=== PATIENT | male | born 1965 | race Caucasian/White ===

== ENCOUNTER 2018-03-03 07:23 | Emergency (ER) | payer OTHER ==
[~2018-03-03] VITALS: Ht 175.3 cm; Wt 131.8 kg
[~2018-03-03 07:23] MED LIST: FURO20 PO; LEDI1TAB PO; LISI-661 PO; METF-960 PO; METH10SO PO; NADO20 PO; RANI150T7 PO; SPIR50 PO; SULF-168 PO
[2018-03-03 07:33] LABS: GLUCOSE,POINT OF CARE 162 MG/DL (70-110)
[2018-03-03] MEDS ORDERED: DIPHENOXYLATE/ATROP 2.5-0.025 MG/5 ML ORAL.SYG LIQUID PO ONE (08:00)
[2018-03-03] MEDS ORDERED: ONDANSETRON HCL 4 MG/2 ML VIAL IVP ONE (08:00)
[2018-03-03] MEDS ORDERED: SODIUM CHLORIDE 0.9% 1,000 ML IV ONE (08:00)
[2018-03-03 09:19] LABS: BASOPHILS % (AUTO) 0.3 % (0.0-2.0); EOSINOPHILS % (AUTO) 3.2 % (1.0-6.0); HEMATOCRIT 37.9 % (41-53); HEMOGLOBIN 13.4 g/dL (13.5-17.5); LYMPHOCYTES # (AUTO) 0.6 K/uL (1.0-4.8); LYMPHOCYTES % (AUTO) 12.5 % (22.0-44.0); MEAN CORPUSCULAR HGB CONC 35.4 G/dL (31.0-37.0); MEAN CORPUSCULAR VOLUME 82 fL (80-100); MONOCYTES # (AUTO) 0.4 K/uL (0.1-1.0); MONOCYTES % (AUTO) 8.3 % (2.0-9.0); NEUTROPHILS # (AUTO) 3.7 K/uL (1.8-7.7); NEUTROPHILS % (AUTO) 75.7 % (40.0-70.0); PLATELET COUNT (AUTO) 50 K/uL (150-450); RED BLOOD CELL COUNT(AUTO) 4.64 MIL/uL (4.50-5.90); RED CELL DISTRIBUTION WIDTH 15.4 % (11.5-14.5)
[2018-03-03 09:33] LABS: ANION GAP 10 mmol/L (8-16); CALCIUM, TOTAL 8.3 mg/dL (8.8-10.5); CARBON DIOXIDE 27 mmol/L (22-29); CHLORIDE 101 mmol/L (98-107); CREATININE 0.86 mg/dL (0.60-1.30); GLOMERULAR FILTR. RATE CALC > 60 mL/min (>60); GLUCOSE,RANDOM 183 mg/dL (70-110); POTASSIUM 3.5 mmol/L (3.5-5.1); SODIUM SERUM 138 mmol/L (136-145); UREA NITROGEN, BLOOD 13 mg/dL (7-18)
[2018-03-03 09:38] LABS: ALANINE AMINOTRANSFERASE 36 U/L (12-78); ALKALINE PHOSPHATASE 197 U/L (46-116); ASPARTATE AMINOTRANSFERASE 33 U/L (15-37); BILIRUBIN,TOTAL 1.3 mg/dL (0.1-1.0); LIPASE 255 U/L (73-393); TOTAL PROTEIN, SERUM 7.5 g/dL (6.4-8.2)
[2018-03-03 11:10] LABS: APPEARANCE,URINE CLOUDY (CLEAR); GLUCOSE, URINE (UA) NEGATIVE (NEGATIVE); KETONES,URINE 15 mg/dL (NEGATIVE); LEUKOCYTE ESTERASE ,URINE NEGATIVE (NEGATIVE); NITRATE,URINE NEGATIVE (NEGATIVE); OCCULT BLOOD,URINE LARGE (NEGATIVE); PROTEIN,URINE NEGATIVE (NEGATIVE)
[2018-03-03 11:20] VITALS: BP 113/70
[2018-03-03 11:28] LABS: BILIRUBIN,URINE PRELIM. POSITIVE (NEGATIVE)
[2018-03-03] MEDS ORDERED: HEPARIN SODIUM,PORCINE 1,000 UNITS/ML VIAL ONE (11:41)
[2018-03-03 11:49] LABS: BACTERIA,URINE None Seen /HPF (None Seen); MUCUS,URINE Moderate LPF (None Seen); RBC,URINE 51-100 /HPF (0-2); SQUAMOUS EPITHELIAL CELL,UR Few /LPF (None Seen); WBC,URINE None Seen /HPF (0-5)
== END 2018-03-03 11:58 | disposition home or self-care (01) ==
LOC: EMS 07:24
DX: R19.7 Diarrhea, unspecified (principal); E11.9 Type 2 diabetes mellitus without complications; R11.0 Nausea; R10.31 Right lower quadrant pain; I11.0 Hypertensive heart disease with heart failure; I50.9 Heart failure, unspecified; G89.29 Other chronic pain; Z79.899 Other long term (current) drug therapy; Z79.84 Long term (current) use of oral hypoglycemic drugs
CPT/HCPCS: 36415; 80053; 81001; 82962; 83690; 84484; 85025; 93005; 96361; 96374; 99285; J1644; J2405; J7030

== ENCOUNTER 2019-01-17 14:22 | Emergency (ER) | payer OTHER ==
[~2019-01-17] VITALS: Ht 175.3 cm; Wt 131.8 kg
[2019-01-17 14:41] LABS: GLUCOSE,POINT OF CARE 390 MG/DL (70-110)
[2019-01-17] MEDS ORDERED: KETOROLAC TROMETHAMINE 30 MG/ML VIAL IVP ONE (15:15)
[2019-01-17 16:09] LABS: BASOPHILS % (AUTO) 0.5 % (0.0-2.0); HEMATOCRIT 38.6 % (41-53); HEMOGLOBIN 13.6 g/dL (13.5-17.5); LYMPHOCYTES # (AUTO) 0.7 K/uL (1.0-4.8); LYMPHOCYTES % (AUTO) 7.4 % (22.0-44.0); MEAN CORPUSCULAR HEMOGLOBIN 27.9 pg (26.0-34.0); MEAN CORPUSCULAR HGB CONC 35.2 G/dL (31.0-37.0); MEAN CORPUSCULAR VOLUME 79 fL (80-100); MONOCYTES # (AUTO) 0.7 K/uL (0.1-1.0); MONOCYTES % (AUTO) 7.5 % (2.0-9.0); NEUTROPHILS # (AUTO) 8.1 K/uL (1.8-7.7); NEUTROPHILS % (AUTO) 83.6 % (40.0-70.0); RED BLOOD CELL COUNT(AUTO) 4.88 MIL/uL (4.50-5.90); RED CELL DISTRIBUTION WIDTH 15.8 % (11.5-14.5)
[2019-01-17 16:27] LABS: PLATELET COUNT (AUTO) 68 K/uL (150-450)
[2019-01-17 16:36] LABS: ALANINE AMINOTRANSFERASE 18 U/L (12-78); ALBUMIN 2.7 g/dL (3.4-5.0); ALKALINE PHOSPHATASE 151 U/L (46-116); ANION GAP 6 mmol/L (8-16); ASPARTATE AMINOTRANSFERASE 27 U/L (15-37); BILIRUBIN,TOTAL 2.6 mg/dL (0.1-1.0); CALCIUM, TOTAL 8.2 mg/dL (8.8-10.5); CARBON DIOXIDE 27 mmol/L (22-29); CHLORIDE 93 mmol/L (98-107); CREATININE 1.25 mg/dL (0.60-1.30); GLOMERULAR FILTR. RATE CALC 60 mL/min (>60); LACTIC ACID 2.8 mmol/L (0.4-2.0); POTASSIUM 4.4 mmol/L (3.5-5.1); SODIUM SERUM 126 mmol/L (136-145); TOTAL PROTEIN, SERUM 7.8 g/dL (6.4-8.2)
[2019-01-17 16:39] LABS: GLUCOSE,RANDOM 425 mg/dL (70-110)
[2019-01-17 16:59] LABS: UREA NITROGEN, BLOOD 20 mg/dL (7-18)
[2019-01-17] MEDS ORDERED: CefTRIAXone 1 GM/DEXTROSE 50 ML IV ONE (17:00)
[2019-01-17] MEDS ORDERED: ACYCLOVIR 200 MG CAPSULE PO ONE (17:00)
[2019-01-17] MEDS ORDERED: SODIUM CHLORIDE 0.9% 1,000 ML IV ONE (17:00)
[2019-01-17] MEDS ORDERED: INSULIN REGULAR, HUMAN 100 UNITS/ML IVP ONE (17:00)
[2019-01-17 19:35] LABS: GLUCOSE,POINT OF CARE 295 MG/DL (70-110)
[2019-01-17 20:30] VITALS: BP 117/68
== END 2019-01-17 20:53 | disposition home or self-care (01) ==
LOC: EMS 14:24
DX: B02.9 Zoster without complications (principal); E11.9 Type 2 diabetes mellitus without complications; I11.0 Hypertensive heart disease with heart failure; I50.9 Heart failure, unspecified; G89.29 Other chronic pain; Z79.899 Other long term (current) drug therapy; Z79.84 Long term (current) use of oral hypoglycemic drugs
CPT/HCPCS: 36415; 80053; 82962; 83605; 85025; 87040; 96365; 96366; 96375; 99283; J0696; J1815; J1885; J7030

== ENCOUNTER 2019-01-27 14:15 | Inpatient (IN) | payer OTHER ==
[~2019-01-27] VITALS: Ht 175.3 cm; Wt 124.0 kg
[~2019-01-27 14:15] MED LIST changes: -FURO20 PO; -LEDI1TAB PO; -NADO20 PO; -RANI150T7 PO; -SPIR50 PO; -SULF-168 PO
[2019-01-27 14:46] LABS: GLUCOSE,POINT OF CARE 250 MG/DL (70-110)
[2019-01-27] MEDS ORDERED: LIDOCAINE 1% 10 ML VIAL INJ ONE (15:30)
[2019-01-27 16:25] LABS: BASOPHILS % (AUTO) 0.6 % (0.0-2.0); EOSINOPHILS % (AUTO) 4.5 % (1.0-6.0); HEMOGLOBIN 14.4 g/dL (13.5-17.5); LYMPHOCYTES # (AUTO) 1.7 K/uL (1.0-4.8); LYMPHOCYTES % (AUTO) 13.9 % (22.0-44.0); MEAN CORPUSCULAR HGB CONC 34.4 G/dL (31.0-37.0); MEAN CORPUSCULAR VOLUME 81 fL (80-100); MONOCYTES # (AUTO) 0.9 K/uL (0.1-1.0); MONOCYTES % (AUTO) 7.5 % (2.0-9.0); NEUTROPHILS # (AUTO) 8.9 K/uL (1.8-7.7); NEUTROPHILS % (AUTO) 73.5 % (40.0-70.0); RED BLOOD CELL COUNT(AUTO) 5.15 MIL/uL (4.50-5.90); RED CELL DISTRIBUTION WIDTH 15.9 % (11.5-14.5)
[2019-01-27 16:34] LABS: ANION GAP 10 mmol/L (8-16); CALCIUM, TOTAL 9.4 mg/dL (8.8-10.5); CARBON DIOXIDE 22 mmol/L (22-29); CHLORIDE 95 mmol/L (98-107); CREATININE 1.22 mg/dL (0.60-1.30); GLOMERULAR FILTR. RATE CALC > 60 mL/min (>60); GLUCOSE,RANDOM 215 mg/dL (70-110); POTASSIUM 5.4 mmol/L (3.5-5.1); SODIUM SERUM 127 mmol/L (136-145); UREA NITROGEN, BLOOD 11 mg/dL (7-18)
[2019-01-27 16:39] LABS: ALANINE AMINOTRANSFERASE 26 U/L (12-78); ALBUMIN 3.1 g/dL (3.4-5.0); ALKALINE PHOSPHATASE 175 U/L (46-116); ASPARTATE AMINOTRANSFERASE 34 U/L (15-37); BILIRUBIN,TOTAL 1.7 mg/dL (0.1-1.0); TOTAL PROTEIN, SERUM 8.8 g/dL (6.4-8.2)
[2019-01-27 16:56] LABS: PLATELET COUNT (AUTO) 83 K/uL (150-450)
[2019-01-27] MEDS ORDERED: POVIDONE-IODINE 10% 120 ML SOLUTION TP ONE (17:45)
[2019-01-27] MEDS ORDERED: VANCOMYCIN HCL 1 GM/D5% WATER 200 ML IV ONE (18:00)
[2019-01-27] MEDS ORDERED: PIPERACILLIN/TAZO 3.375 GM/D5W 50 ML IV ONE (18:00)
[2019-01-27] MEDS ORDERED: DOCUSATE SODIUM 100 MG CAPSULE PO PRN (18:15)
[2019-01-27] MEDS ORDERED: OxyCODONE HCL/ACETAMINOPHEN 5-325 MG TABLET PO PRN (18:15)
[2019-01-27] MEDS ORDERED: MORPHINE SULFATE 2 MG/ML SYRINGE IVP PRN (18:15)
[2019-01-27] MEDS ORDERED: MAGNESIUM HYDROXIDE SUSPENSION 30 ML UDCUP PO PRN (18:15)
[2019-01-27] MEDS ORDERED: ONDANSETRON HCL 4 MG/2 ML VIAL IVP PRN (18:15)
[2019-01-27] MEDS ORDERED: ACETAMINOPHEN 325 MG TABLET PO PRN (18:15)
[2019-01-27] MEDS ORDERED: DEXTROSE 50%-WATER 25 GM/50 ML SYRINGE IVP PRN (18:30)
[2019-01-27] MEDS ORDERED: SODIUM CHLORIDE 0.9% 1,000 ML IV ONE (18:30)
[2019-01-27 20:54] VITALS: BP 112/70
[2019-01-27] MEDS: INSULIN LISPRO 100 UNITS/ML SQ PRN (21:14)
[2019-01-27 21:35] LABS: GLUCOMETER DEV NAME(LOC) 6N.1; GLUCOSE,POINT OF CARE 170 MG/DL (70-110)
[2019-01-27] MEDS: PIPERACILLIN/TAZO 3.375 GM/D5W 50 ML IV SCH (23:30)
[2019-01-27] MEDS ORDERED: INFLUENZA VIRUS VACCINE QVS 2019-20 (3YR+)/PF 60 MCG/0.5 ML SYRINGE IM ONE (23:30)
[2019-01-28] MEDS ORDERED: TAZOBACTAM IV SCH
[2019-01-28] MEDS ORDERED: DEX IS IV SCH
[2019-01-28] MEDS ORDERED: PIPERACILLIN IV SCH
[2019-01-28 00:11] VITALS: BP 114/72
[2019-01-28 04:00] VITALS: BP 91/60
[2019-01-28] MEDS: PIPERACILLIN/TAZO 3.375 GM/D5W 50 ML IV SCH (05:28)
[2019-01-28] MEDS: INSULIN LISPRO 100 UNITS/ML SQ PRN ×2 (05:33→11:58)
[2019-01-28 06:11] LABS: GLUCOMETER DEV NAME(LOC) 6N.1; GLUCOSE,POINT OF CARE 156 MG/DL (70-110)
[2019-01-28 06:54] LABS: BASOPHILS % (AUTO) 0.4 % (0.0-2.0); EOSINOPHILS % (AUTO) 4.1 % (1.0-6.0); HEMATOCRIT 35.3 % (41-53); HEMOGLOBIN 12.2 g/dL (13.5-17.5); LYMPHOCYTES # (AUTO) 1.6 K/uL (1.0-4.8); LYMPHOCYTES % (AUTO) 23.7 % (22.0-44.0); MEAN CORPUSCULAR HGB CONC 34.5 G/dL (31.0-37.0); MEAN CORPUSCULAR VOLUME 81 fL (80-100); MONOCYTES # (AUTO) 0.7 K/uL (0.1-1.0); MONOCYTES % (AUTO) 10.5 % (2.0-9.0); NEUTROPHILS # (AUTO) 4.2 K/uL (1.8-7.7); NEUTROPHILS % (AUTO) 61.3 % (40.0-70.0); PLATELET COUNT (AUTO) 83 K/uL (150-450); RED BLOOD CELL COUNT(AUTO) 4.34 MIL/uL (4.50-5.90)
[2019-01-28] MEDS ORDERED: VANCOMYCIN HCL 1.75 GM in DEXTROSE 5%-WATER 250 ML IV SCH (07:00)
[2019-01-28 07:14] LABS: CALCIUM, TOTAL 9.1 mg/dL (8.8-10.5); CREATININE 1.46 mg/dL (0.60-1.30); POTASSIUM 5.2 mmol/L (3.5-5.1)
[2019-01-28 07:55] VITALS: BP 109/64
[2019-01-28] MEDS ORDERED: FAMOTIDINE 20 MG TABLET PO SCH (09:00)
[2019-01-28] MEDS ORDERED: SODIUM CHLORIDE 0.9% 1,000 ML IV ONE (10:00)
[2019-01-28 11:12] VITALS: BP 120/75
[2019-01-28 19:06] LABS: GLUCOMETER DEV NAME(LOC) 6N.1; GLUCOSE,POINT OF CARE 291 MG/DL (70-110)
== END 2019-01-28 12:35 | disposition left against medical advice (07) | DRG 603 ==
LOC: EMS 14:18 → 6N 18:25
PROVIDERS: ADMIT Internal Medicine; ATTEND Internal Medicine
PROC: 0X920ZZ Drainage of Right Shoulder Region, Open Approach (ICD-10-PCS; principal; 2019-01-27)
DX: L02.413 Cutaneous abscess of right upper limb (principal); E87.1 Hypo-osmolality and hyponatremia; E44.0 Moderate protein-calorie malnutrition; Z68.41 Body mass index [BMI] 40.0-44.9, adult; L03.113 Cellulitis of right upper limb; F19.10 Other psychoactive substance abuse, uncomplicated; B19.20 Unspecified viral hepatitis C without hepatic coma; D69.6 Thrombocytopenia, unspecified; E11.9 Type 2 diabetes mellitus without complications; E66.01 Morbid (severe) obesity due to excess calories; F11.10 Opioid abuse, uncomplicated; I11.0 Hypertensive heart disease with heart failure; I50.9 Heart failure, unspecified; B02.9 Zoster without complications; Z91.19 Patient's noncompliance with other medical treatment and regimen; Z79.899 Other long term (current) drug therapy; Z53.29 Procedure and treatment not carried out because of patient's decision for other reasons
CPT/HCPCS: 10060; 83605; 87040; 87070; 87081; 87205; 93306; J2270; J2543; J3370; J3490; J7060

== ENCOUNTER 2019-02-11 09:53 | Emergency (ER) | payer OTHER ==
[~2019-02-11] VITALS: Ht 177.8 cm; Wt 131.8 kg
[2019-02-11 10:31] LABS: GLUCOSE,POINT OF CARE 214 MG/DL (70-110)
[2019-02-11] MEDS ORDERED: AMOX TR/POT CLAV 875 MG/125 MG TABLET PO ONE (10:45)
[2019-02-11 11:27] LABS: BASOPHILS % (AUTO) 0.5 % (0.0-2.0); EOSINOPHILS % (AUTO) 3.7 % (1.0-6.0); HEMATOCRIT 33.7 % (41-53); HEMOGLOBIN 11.6 g/dL (13.5-17.5); LYMPHOCYTES # (AUTO) 0.7 K/uL (1.0-4.8); LYMPHOCYTES % (AUTO) 14.4 % (22.0-44.0); MEAN CORPUSCULAR HEMOGLOBIN 28.1 pg (26.0-34.0); MEAN CORPUSCULAR HGB CONC 34.4 G/dL (31.0-37.0); MEAN CORPUSCULAR VOLUME 82 fL (80-100); MONOCYTES # (AUTO) 0.5 K/uL (0.1-1.0); MONOCYTES % (AUTO) 10.6 % (2.0-9.0); NEUTROPHILS # (AUTO) 3.4 K/uL (1.8-7.7); NEUTROPHILS % (AUTO) 70.8 % (40.0-70.0); RED BLOOD CELL COUNT(AUTO) 4.12 MIL/uL (4.50-5.90); RED CELL DISTRIBUTION WIDTH 17.2 % (11.5-14.5)
[2019-02-11 11:37] LABS: CALCIUM, TOTAL 7.9 mg/dL (8.8-10.5); CREATININE 1.46 mg/dL (0.60-1.30); POTASSIUM 4.1 mmol/L (3.5-5.1)
[2019-02-11 12:17] LABS: PLATELET COUNT (AUTO) 43 K/uL (150-450)
[2019-02-11 12:32] VITALS: BP 113/76
[2019-02-11] MEDS ORDERED: HEPARIN SODIUM,PORCINE 100 UNITS/ML 5 ML VIAL IVP ONE ×2 (12:45→13:00)
== END 2019-02-11 13:02 | disposition home or self-care (01) ==
LOC: EMS 09:54
DX: L03.113 Cellulitis of right upper limb (principal); D69.6 Thrombocytopenia, unspecified; E11.65 Type 2 diabetes mellitus with hyperglycemia; I11.0 Hypertensive heart disease with heart failure; I50.9 Heart failure, unspecified; G89.29 Other chronic pain; F11.90 Opioid use, unspecified, uncomplicated; Z79.84 Long term (current) use of oral hypoglycemic drugs; Z79.899 Other long term (current) drug therapy
CPT/HCPCS: 36415; 73130; 80048; 82962; 85025; 96374; 99284; J1642

== ENCOUNTER 2019-03-09 15:01 | Inpatient (IN) | payer OTHER ==
[~2019-03-09] VITALS: Ht 175.3 cm; Wt 122.7 kg
[2019-03-09] MEDS ORDERED: SODIUM CHLORIDE 0.9% 1,000 ML IV ONE (15:12)
[2019-03-09] MEDS ORDERED: VANCOMYCIN HCL 1 GM/D5% WATER 200 ML IV ONE (15:15)
[2019-03-09] MEDS ORDERED: CefTRIAXone 1 GM/DEXTROSE 50 ML IV ONE (15:15)
[2019-03-09 16:25] LABS: BASOPHILS % (AUTO) 0.3 % (0.0-2.0); EOSINOPHILS % (AUTO) 1.8 % (1.0-6.0); HEMATOCRIT 34.2 % (41-53); HEMOGLOBIN 11.6 g/dL (13.5-17.5); LYMPHOCYTES # (AUTO) 0.7 K/uL (1.0-4.8); MEAN CORPUSCULAR HEMOGLOBIN 27.5 pg (26.0-34.0); MEAN CORPUSCULAR HGB CONC 33.9 G/dL (31.0-37.0); MEAN CORPUSCULAR VOLUME 81 fL (80-100); MONOCYTES # (AUTO) 0.7 K/uL (0.1-1.0); MONOCYTES % (AUTO) 8.5 % (2.0-9.0); NEUTROPHILS # (AUTO) 6.2 K/uL (1.8-7.7); NEUTROPHILS % (AUTO) 80.4 % (40.0-70.0); RED BLOOD CELL COUNT(AUTO) 4.21 MIL/uL (4.50-5.90); RED CELL DISTRIBUTION WIDTH 16.4 % (11.5-14.5)
[2019-03-09 16:27] LABS: CREATININE 1.33 mg/dL (0.60-1.30); POTASSIUM 4.2 mmol/L (3.5-5.1)
[2019-03-09 16:31] LABS: INR 1.2 (0.9-1.1); PROTHROMBIN TIME 12.2 SEC (9.4-11.6)
[2019-03-09 16:33] LABS: ALBUMIN 2.6 g/dL (3.4-5.0); BILIRUBIN,TOTAL 1.9 mg/dL (0.1-1.0); TOTAL PROTEIN, SERUM 7.6 g/dL (6.4-8.2)
[2019-03-09 16:55] LABS: PLATELET COUNT (AUTO) 52 K/uL (150-450); PLATELET MORPHOLOGY COMMENT DECREASED
[2019-03-09] MEDS ORDERED: ACETAMINOPHEN 325 MG TABLET PO PRN (18:45)
[2019-03-09] MEDS ORDERED: 0.9% SODIUM CHLORIDE 10 ML SYRINGE IVP PRN (18:45)
[2019-03-09] MEDS ORDERED: ONDANSETRON HCL 4 MG/2 ML VIAL IVP PRN (18:45)
[2019-03-09 19:50] VITALS: BP 135/77
[2019-03-10 00:46] VITALS: BP 130/79
[2019-03-10] MEDS ORDERED: GLUCAGON,HUMAN RECOMBINANT 1 MG VIAL IM PRN (03:00)
[2019-03-10] MEDS ORDERED: OxyCODONE HCL/ACETAMINOPHEN 5-325 MG TABLET PO PRN (03:00)
[2019-03-10] MEDS ORDERED: INSULIN LISPRO 100 UNITS/ML SQ PRN (03:00)
[2019-03-10] MEDS ORDERED: 0.9% SODIUM CHLORIDE 10 ML SYRINGE IVP PRN (03:00)
[2019-03-10] MEDS ORDERED: CeFAZolin 1 GM/DEXTROSE 50 ML IV SCH (03:00)
[2019-03-10] MEDS ORDERED: DEXTROSE 50%-WATER 25 GM/50 ML SYG IVP PRN (03:15)
[2019-03-10] MEDS ORDERED: SODIUM CHLORIDE 0.9% 250 ML IV ONE (04:14)
[2019-03-10] MEDS: DOCUSATE SODIUM 100 MG CAPSULE PO SCH ×3 (04:38→21:13)
[2019-03-10] MEDS: CeFAZolin 1 GM/DEXTROSE 50 ML IV SCH ×3 (04:40→21:11)
[2019-03-10 05:19] VITALS: BP 133/76
[2019-03-10 06:02] LABS: GLUCOMETER DEV NAME(LOC) 4E.2; GLUCOSE,POINT OF CARE 125 MG/DL (70-110)
[2019-03-10 06:02] LABS: GLUCOMETER DEV NAME(LOC) 4E.2; GLUCOSE,POINT OF CARE 198 MG/DL (70-110)
[2019-03-10 06:59] LABS: BASOPHILS % (AUTO) 0.2 % (0.0-2.0); EOSINOPHILS % (AUTO) 3.9 % (1.0-6.0); HEMATOCRIT 30.8 % (41-53); HEMOGLOBIN 10.8 g/dL (13.5-17.5); LYMPHOCYTES # (AUTO) 0.8 K/uL (1.0-4.8); LYMPHOCYTES % (AUTO) 13.7 % (22.0-44.0); MEAN CORPUSCULAR HEMOGLOBIN 28.1 pg (26.0-34.0); MEAN CORPUSCULAR VOLUME 80 fL (80-100); MONOCYTES # (AUTO) 0.6 K/uL (0.1-1.0); MONOCYTES % (AUTO) 10.1 % (2.0-9.0); NEUTROPHILS # (AUTO) 4.1 K/uL (1.8-7.7); NEUTROPHILS % (AUTO) 72.1 % (40.0-70.0); PLATELET COUNT (AUTO) 49 K/uL (150-450); RED BLOOD CELL COUNT(AUTO) 3.84 MIL/uL (4.50-5.90); RED CELL DISTRIBUTION WIDTH 16.2 % (11.5-14.5)
[2019-03-10 07:12] LABS: ALANINE AMINOTRANSFERASE 20 U/L (12-78); ALBUMIN 2.4 g/dL (3.4-5.0); ALKALINE PHOSPHATASE 122 U/L (46-116); ANION GAP 7 mmol/L (8-16); ASPARTATE AMINOTRANSFERASE 28 U/L (15-37); BILIRUBIN,TOTAL 1.1 mg/dL (0.1-1.0); CALCIUM, TOTAL 7.9 mg/dL (8.8-10.5); CARBON DIOXIDE 26 mmol/L (22-29); CHLORIDE 103 mmol/L (98-107); CREATININE 1.11 mg/dL (0.60-1.30); GLOMERULAR FILTR. RATE CALC > 60 mL/min (>60); GLUCOSE,RANDOM 122 mg/dL (70-110); POTASSIUM 3.8 mmol/L (3.5-5.1); SODIUM SERUM 136 mmol/L (136-145); TOTAL PROTEIN, SERUM 7.1 g/dL (6.4-8.2); UREA NITROGEN, BLOOD 16 mg/dL (7-18)
[2019-03-10 07:21] VITALS: BP 116/69
[2019-03-10] MEDS: FAMOTIDINE 20 MG TABLET PO SCH (08:18)
[2019-03-10] MEDS: LISINOPRIL 10 MG TABLET PO SCH (09:16)
[2019-03-10] MEDS: ONDANSETRON HCL 4 MG/2 ML VIAL IVP PRN (09:16)
[2019-03-10] MEDS: OxyCODONE HCL/ACETAMINOPHEN 5-325 MG TABLET PO PRN ×2 (09:17→17:54)
[2019-03-10 11:10] VITALS: BP 138/93
[2019-03-10] MEDS: INSULIN LISPRO 100 UNITS/ML SQ PRN ×3 (11:33→21:16)
[2019-03-10] MEDS: INSULIN LISPRO 100 UNITS/ML SQ SCH ×2 (11:35→17:57)
[2019-03-10] MEDS: METHADONE HCL 10 MG TABLET PO SCH (13:32)
[2019-03-10 13:35] LABS: GLUCOMETER DEV NAME(LOC) 4E.2; GLUCOSE,POINT OF CARE 202 MG/DL (70-110)
[2019-03-10 15:10] VITALS: BP 115/71
[2019-03-10 20:23] VITALS: BP 125/77
[2019-03-10 20:38] LABS: GLUCOMETER DEV NAME(LOC) 4E.2; GLUCOSE,POINT OF CARE 192 MG/DL (70-110)
[2019-03-10] MEDS: INSULIN GLARGINE,HUM.REC.ANLOG 100 UNITS/ML SQ SCH (21:13)
[2019-03-11] VITALS (7 sets, daily range): BP systolic 112–137; BP diastolic 69–92
[2019-03-11 00:33] LABS: GLUCOMETER DEV NAME(LOC) 6N.2; GLUCOSE,POINT OF CARE 168 MG/DL (70-110)
[2019-03-11] MEDS: CeFAZolin 1 GM/DEXTROSE 50 ML IV SCH ×2 (04:05→11:41)
[2019-03-11] MEDS: INSULIN LISPRO 100 UNITS/ML SQ SCH ×3 (05:14→17:29)
[2019-03-11 06:07] LABS: ANION GAP 5 mmol/L (8-16); CALCIUM, TOTAL 7.8 mg/dL (8.8-10.5); CARBON DIOXIDE 28 mmol/L (22-29); CHLORIDE 104 mmol/L (98-107); CREATININE 1.11 mg/dL (0.60-1.30); GLOMERULAR FILTR. RATE CALC > 60 mL/min (>60); GLUCOSE,RANDOM 118 mg/dL (70-110); POTASSIUM 3.9 mmol/L (3.5-5.1); SODIUM SERUM 137 mmol/L (136-145); UREA NITROGEN, BLOOD 15 mg/dL (7-18)
[2019-03-11 06:09] LABS: BASOPHILS % (AUTO) 0.3 % (0.0-2.0); EOSINOPHILS % (AUTO) 4.6 % (1.0-6.0); HEMATOCRIT 30.4 % (41-53); HEMOGLOBIN 10.6 g/dL (13.5-17.5); LYMPHOCYTES # (AUTO) 0.8 K/uL (1.0-4.8); LYMPHOCYTES % (AUTO) 19.5 % (22.0-44.0); MEAN CORPUSCULAR HGB CONC 34.9 G/dL (31.0-37.0); MEAN CORPUSCULAR VOLUME 80 fL (80-100); MONOCYTES # (AUTO) 0.4 K/uL (0.1-1.0); MONOCYTES % (AUTO) 10.5 % (2.0-9.0); NEUTROPHILS # (AUTO) 2.5 K/uL (1.8-7.7); NEUTROPHILS % (AUTO) 65.1 % (40.0-70.0); RED BLOOD CELL COUNT(AUTO) 3.79 MIL/uL (4.50-5.90); RED CELL DISTRIBUTION WIDTH 15.7 % (11.5-14.5)
[2019-03-11 08:01] LABS: PLATELET COUNT (AUTO) 52 K/uL (150-450)
[2019-03-11] MEDS: FAMOTIDINE 20 MG TABLET PO SCH (08:26)
[2019-03-11] MEDS: METHADONE HCL 10 MG TABLET PO SCH (08:27)
[2019-03-11] MEDS: LISINOPRIL 10 MG TABLET PO SCH (08:27)
[2019-03-11] MEDS: DOCUSATE SODIUM 100 MG CAPSULE PO SCH ×2 (08:27→20:32)
[2019-03-11 11:57] LABS: GLUCOMETER DEV NAME(LOC) 6N.2; GLUCOSE,POINT OF CARE 205 MG/DL (70-110)
[2019-03-11 11:57] LABS: GLUCOMETER DEV NAME(LOC) 6N.2; GLUCOSE,POINT OF CARE 96 MG/DL (70-110)
[2019-03-11] MEDS: INSULIN LISPRO 100 UNITS/ML SQ PRN ×3 (11:59→21:00)
[2019-03-11] MEDS ORDERED: VANCOMYCIN HCL 1.5 GM in DEXTROSE 5%-WATER 250 ML IV ONE (17:00)
[2019-03-11 17:44] LABS: GLUCOMETER DEV NAME(LOC) 4E.2; GLUCOSE,POINT OF CARE 189 MG/DL (70-110)
[2019-03-11] MEDS: INSULIN GLARGINE,HUM.REC.ANLOG 100 UNITS/ML SQ SCH (21:00)
[2019-03-11 21:33] LABS: GLUCOMETER DEV NAME(LOC) 4E.2; GLUCOSE,POINT OF CARE 207 MG/DL (70-110)
[2019-03-11] MEDS: VANCOMYCIN HCL 1.25 GM in DEXTROSE 5%-WATER 250 ML IV SCH (23:00)
[2019-03-11] MEDS ORDERED: SODIUM CHLORIDE 0.9% 250 ML IV ONE (23:46)
[2019-03-12 04:25] VITALS: BP 143/79
[2019-03-12 06:23] LABS: BASOPHILS % (AUTO) 0.5 % (0.0-2.0); HEMATOCRIT 30.3 % (41-53); HEMOGLOBIN 10.5 g/dL (13.5-17.5); LYMPHOCYTES # (AUTO) 0.7 K/uL (1.0-4.8); MEAN CORPUSCULAR HGB CONC 34.8 G/dL (31.0-37.0); MEAN CORPUSCULAR VOLUME 81 fL (80-100); MONOCYTES # (AUTO) 0.2 K/uL (0.1-1.0); MONOCYTES % (AUTO) 9.4 % (2.0-9.0); NEUTROPHILS # (AUTO) 1.5 K/uL (1.8-7.7); NEUTROPHILS % (AUTO) 56.1 % (40.0-70.0); PLATELET COUNT (AUTO) 49 K/uL (150-450); RED BLOOD CELL COUNT(AUTO) 3.77 MIL/uL (4.50-5.90)
[2019-03-12] MEDS: INSULIN LISPRO 100 UNITS/ML SQ SCH ×3 (06:30→17:32)
[2019-03-12 06:39] LABS: ALANINE AMINOTRANSFERASE 19 U/L (12-78); ALBUMIN 2.3 g/dL (3.4-5.0); ALKALINE PHOSPHATASE 99 U/L (46-116); ANION GAP 5 mmol/L (8-16); ASPARTATE AMINOTRANSFERASE 28 U/L (15-37); BILIRUBIN,TOTAL 0.9 mg/dL (0.1-1.0); C-REACTIVE PROTEIN QUANT 3.49 mg/dL (0.00-0.30); CARBON DIOXIDE 28 mmol/L (22-29); CHLORIDE 104 mmol/L (98-107); CREATININE 1.16 mg/dL (0.60-1.30); GLOMERULAR FILTR. RATE CALC > 60 mL/min (>60); GLUCOSE,RANDOM 111 mg/dL (70-110); POTASSIUM 3.8 mmol/L (3.5-5.1); SODIUM SERUM 137 mmol/L (136-145); UREA NITROGEN, BLOOD 13 mg/dL (7-18)
[2019-03-12] MEDS: VANCOMYCIN HCL 1.25 GM in DEXTROSE 5%-WATER 250 ML IV SCH ×2 (07:10→16:10)
[2019-03-12 07:59] LABS: GLUCOMETER DEV NAME(LOC) 6N.2; GLUCOSE,POINT OF CARE 102 MG/DL (70-110)
[2019-03-12 08:06] VITALS: BP 122/75
[2019-03-12] MEDS: LISINOPRIL 10 MG TABLET PO SCH (08:10)
[2019-03-12] MEDS: DOCUSATE SODIUM 100 MG CAPSULE PO SCH ×2 (08:10→20:43)
[2019-03-12] MEDS: FAMOTIDINE 20 MG TABLET PO SCH (08:10)
[2019-03-12] MEDS: METHADONE HCL 10 MG TABLET PO SCH (09:00)
[2019-03-12 11:52] VITALS: BP 129/85
[2019-03-12 15:45] VITALS: BP 130/81
[2019-03-12] MEDS ORDERED: SODIUM CHLORIDE 0.9% 250 ML IV ONE (16:17)
[2019-03-12] MEDS: INSULIN LISPRO 100 UNITS/ML SQ PRN ×2 (17:34→20:43)
[2019-03-12 17:54] LABS: GLUCOMETER DEV NAME(LOC) 4E.2; GLUCOSE,POINT OF CARE 217 MG/DL (70-110)
[2019-03-12 19:45] VITALS: BP 145/78
[2019-03-12] MEDS: OxyCODONE HCL/ACETAMINOPHEN 5-325 MG TABLET PO PRN (20:45)
[2019-03-12] MEDS: INSULIN GLARGINE,HUM.REC.ANLOG 100 UNITS/ML SQ SCH (20:45)
[2019-03-12 21:17] LABS: GLUCOMETER DEV NAME(LOC) 4E.2; GLUCOSE,POINT OF CARE 220 MG/DL (70-110)
[2019-03-12 23:52] VITALS: BP 132/75
[2019-03-13] MEDS: VANCOMYCIN HCL 1.25 GM in DEXTROSE 5%-WATER 250 ML IV SCH ×4 (00:01→23:08)
[2019-03-13 00:13] LABS: GLUCOMETER DEV NAME(LOC) 6N.2; GLUCOSE,POINT OF CARE 223 MG/DL (70-110)
[2019-03-13 05:00] VITALS: BP 124/77
[2019-03-13] MEDS: INSULIN LISPRO 100 UNITS/ML SQ SCH ×3 (06:30→17:28)
[2019-03-13 07:33] VITALS: BP 119/80
[2019-03-13] MEDS: DOCUSATE SODIUM 100 MG CAPSULE PO SCH ×2 (08:29→20:11)
[2019-03-13] MEDS: LISINOPRIL 10 MG TABLET PO SCH (08:29)
[2019-03-13] MEDS: FAMOTIDINE 20 MG TABLET PO SCH (08:30)
[2019-03-13] MEDS: METHADONE HCL 10 MG TABLET PO SCH (08:30)
[2019-03-13 10:52] LABS: GLUCOMETER DEV NAME(LOC) 4E.2; GLUCOSE,POINT OF CARE 102 MG/DL (70-110)
[2019-03-13 11:19] VITALS: BP 129/80
[2019-03-13] MEDS: INSULIN LISPRO 100 UNITS/ML SQ PRN ×3 (12:01→20:20)
[2019-03-13 12:09] LABS: ANION GAP 5 mmol/L (8-16); CARBON DIOXIDE 30 mmol/L (22-29); CHLORIDE 103 mmol/L (98-107); CREATININE 1.13 mg/dL (0.60-1.30); GLOMERULAR FILTR. RATE CALC > 60 mL/min (>60); GLUCOSE,RANDOM 163 mg/dL (70-110); POTASSIUM 3.8 mmol/L (3.5-5.1); SODIUM SERUM 138 mmol/L (136-145); UREA NITROGEN, BLOOD 12 mg/dL (7-18)
[2019-03-13 12:33] LABS: VANCOMYCIN,RANDOM 58.4 mcg/mL (25.0-50.0)
[2019-03-13 12:51] LABS: GLUCOMETER DEV NAME(LOC) 6N.2; GLUCOSE,POINT OF CARE 147 MG/DL (70-110)
[2019-03-13 15:57] VITALS: BP 124/77
[2019-03-13 19:36] VITALS: BP 127/80
[2019-03-13] MEDS: OxyCODONE HCL/ACETAMINOPHEN 5-325 MG TABLET PO PRN (20:12)
[2019-03-13] MEDS: INSULIN GLARGINE,HUM.REC.ANLOG 100 UNITS/ML SQ SCH (20:22)
[2019-03-13 21:00] LABS: GLUCOMETER DEV NAME(LOC) 6N.2; GLUCOSE,POINT OF CARE 192 MG/DL (70-110)
[2019-03-13 21:01] LABS: GLUCOMETER DEV NAME(LOC) 6N.2; GLUCOSE,POINT OF CARE 223 MG/DL (70-110)
[2019-03-14] VITALS (7 sets, daily range): BP systolic 118–143; BP diastolic 69–87
[2019-03-14] MEDS ORDERED: SODIUM CHLORIDE 0.9% 250 ML IV ONE (02:57)
[2019-03-14] MEDS: VANCOMYCIN HCL 1.25 GM in DEXTROSE 5%-WATER 250 ML IV SCH (06:01)
[2019-03-14] MEDS: INSULIN LISPRO 100 UNITS/ML SQ SCH ×3 (06:04→17:01)
[2019-03-14 06:20] LABS: GLUCOMETER DEV NAME(LOC) 4E.2; GLUCOSE,POINT OF CARE 102 MG/DL (70-110)
[2019-03-14 08:07] LABS: BASOPHILS % (AUTO) 0.4 % (0.0-2.0); EOSINOPHILS % (AUTO) 5.8 % (1.0-6.0); HEMATOCRIT 29.1 % (41-53); HEMOGLOBIN 10.2 g/dL (13.5-17.5); LYMPHOCYTES # (AUTO) 0.6 K/uL (1.0-4.8); LYMPHOCYTES % (AUTO) 25.3 % (22.0-44.0); MEAN CORPUSCULAR HGB CONC 34.9 G/dL (31.0-37.0); MEAN CORPUSCULAR VOLUME 80 fL (80-100); MONOCYTES # (AUTO) 0.2 K/uL (0.1-1.0); MONOCYTES % (AUTO) 7.9 % (2.0-9.0); NEUTROPHILS # (AUTO) 1.5 K/uL (1.8-7.7); NEUTROPHILS % (AUTO) 60.6 % (40.0-70.0); RED BLOOD CELL COUNT(AUTO) 3.63 MIL/uL (4.50-5.90); RED CELL DISTRIBUTION WIDTH 15.5 % (11.5-14.5)
[2019-03-14] MEDS: LISINOPRIL 10 MG TABLET PO SCH (08:22)
[2019-03-14] MEDS: DOCUSATE SODIUM 100 MG CAPSULE PO SCH ×2 (08:22→20:01)
[2019-03-14] MEDS: FAMOTIDINE 20 MG TABLET PO SCH (08:22)
[2019-03-14] MEDS: METHADONE HCL 10 MG TABLET PO SCH (08:24)
[2019-03-14 08:31] LABS: ANION GAP 3 mmol/L (8-16); C-REACTIVE PROTEIN QUANT 1.72 mg/dL (0.00-0.30); CALCIUM, TOTAL 7.9 mg/dL (8.8-10.5); CARBON DIOXIDE 31 mmol/L (22-29); CHLORIDE 103 mmol/L (98-107); CREATININE 1.09 mg/dL (0.60-1.30); GLOMERULAR FILTR. RATE CALC > 60 mL/min (>60); GLUCOSE,RANDOM 130 mg/dL (70-110); POTASSIUM 3.7 mmol/L (3.5-5.1); SODIUM SERUM 137 mmol/L (136-145); UREA NITROGEN, BLOOD 11 mg/dL (7-18)
[2019-03-14 08:56] LABS: VANCOMYCIN,RANDOM 69.9 mcg/mL (25.0-50.0)
[2019-03-14 09:33] LABS: PLATELET COUNT (AUTO) 52 K/uL (150-450)
[2019-03-14] MEDS: INSULIN LISPRO 100 UNITS/ML SQ PRN ×3 (12:06→21:07)
[2019-03-14] MEDS: CefTAZidime PENTAHYDRATE 2 GM in DEXTROSE 5%-WATER 50 ML IV SCH ×2 (14:47→22:02)
[2019-03-14 16:17] LABS: GLUCOMETER DEV NAME(LOC) 6N.2; GLUCOSE,POINT OF CARE 198 MG/DL (70-110)
[2019-03-14 17:49] LABS: GLUCOMETER DEV NAME(LOC) 4E.2; GLUCOSE,POINT OF CARE 148 MG/DL (70-110)
[2019-03-14] MEDS: OxyCODONE HCL/ACETAMINOPHEN 5-325 MG TABLET PO PRN (20:01)
[2019-03-14] MEDS: INSULIN GLARGINE,HUM.REC.ANLOG 100 UNITS/ML SQ SCH (21:06)
[2019-03-14 21:42] LABS: GLUCOMETER DEV NAME(LOC) 4E.2; GLUCOSE,POINT OF CARE 252 MG/DL (70-110)
[2019-03-15 04:50] VITALS: BP 136/79
[2019-03-15] MEDS: CefTAZidime PENTAHYDRATE 2 GM in DEXTROSE 5%-WATER 50 ML IV SCH ×2 (06:01→15:15)
[2019-03-15 06:06] LABS: ANION GAP 4 mmol/L (8-16); CALCIUM, TOTAL 8.1 mg/dL (8.8-10.5); CARBON DIOXIDE 31 mmol/L (22-29); CHLORIDE 105 mmol/L (98-107); CREATININE 1.23 mg/dL (0.60-1.30); GLOMERULAR FILTR. RATE CALC > 60 mL/min (>60); GLUCOSE,RANDOM 99 mg/dL (70-110); POTASSIUM 3.9 mmol/L (3.5-5.1); SODIUM SERUM 140 mmol/L (136-145); UREA NITROGEN, BLOOD 17 mg/dL (7-18)
[2019-03-15 06:10] LABS: BASOPHILS % (AUTO) 0.5 % (0.0-2.0); EOSINOPHILS % (AUTO) 7.6 % (1.0-6.0); HEMATOCRIT 29.1 % (41-53); HEMOGLOBIN 10.2 g/dL (13.5-17.5); LYMPHOCYTES # (AUTO) 0.6 K/uL (1.0-4.8); LYMPHOCYTES % (AUTO) 20.9 % (22.0-44.0); MEAN CORPUSCULAR VOLUME 80 fL (80-100); MONOCYTES # (AUTO) 0.2 K/uL (0.1-1.0); MONOCYTES % (AUTO) 8.3 % (2.0-9.0); NEUTROPHILS # (AUTO) 1.8 K/uL (1.8-7.7); NEUTROPHILS % (AUTO) 62.7 % (40.0-70.0); RED BLOOD CELL COUNT(AUTO) 3.62 MIL/uL (4.50-5.90)
[2019-03-15] MEDS: INSULIN LISPRO 100 UNITS/ML SQ SCH ×3 (06:30→18:30)
[2019-03-15] MEDS ORDERED: VANCOMYCIN HCL 750 MG in DEXTROSE 5%-WATER 250 ML IV SCH (07:00)
[2019-03-15 07:15] LABS: PLATELET COUNT (AUTO) 55 K/uL (150-450)
[2019-03-15 07:57] VITALS: BP 122/67
[2019-03-15] MEDS: LISINOPRIL 10 MG TABLET PO SCH (08:34)
[2019-03-15] MEDS: DOCUSATE SODIUM 100 MG CAPSULE PO SCH ×2 (08:34→20:42)
[2019-03-15] MEDS: FAMOTIDINE 20 MG TABLET PO SCH (08:34)
[2019-03-15 10:44] LABS: GLUCOMETER DEV NAME(LOC) 6N.2; GLUCOSE,POINT OF CARE 99 MG/DL (70-110)
[2019-03-15 11:39] VITALS: BP 122/82
[2019-03-15] MEDS: METHADONE HCL 10 MG TABLET PO SCH (11:43)
[2019-03-15] MEDS: INSULIN LISPRO 100 UNITS/ML SQ PRN ×2 (12:16→20:47)
[2019-03-15] MEDS ORDERED: SODIUM CHLORIDE 0.9% 250 ML IV ONE (15:32)
[2019-03-15 15:52] VITALS: BP 123/72
[2019-03-15] MEDS ORDERED: *CLINICAL-BACTRIM/SEPTRA IVPB DOSING CLINICAL ONE (16:15)
[2019-03-15] MEDS ORDERED: TRIMETH IV ONE (17:00)
[2019-03-15] MEDS ORDERED: SULFAMETHOX IV ONE (17:00)
[2019-03-15] MEDS ORDERED: WATER IV ONE (17:00)
[2019-03-15] MEDS ORDERED: DEXTROSE IV ONE (17:00)
[2019-03-15 19:50] LABS: GLUCOMETER DEV NAME(LOC) 4E.2; GLUCOSE,POINT OF CARE 133 MG/DL (70-110)
[2019-03-15 20:19] VITALS: BP 133/76
[2019-03-15] MEDS: INSULIN GLARGINE,HUM.REC.ANLOG 100 UNITS/ML SQ SCH (20:48)
[2019-03-15] MEDS ORDERED: CefTRIAXone SODIUM 2 GM in DEXTROSE 5%-WATER 50 ML IV SCH (22:00)
[2019-03-15 23:28] VITALS: BP 132/73
[2019-03-16 00:07] LABS: GLUCOMETER DEV NAME(LOC) 4E.2; GLUCOSE,POINT OF CARE 218 MG/DL (70-110)
[2019-03-16 05:21] VITALS: BP 129/72
[2019-03-16 05:28] LABS: GLUCOMETER DEV NAME(LOC) 6N.2; GLUCOSE,POINT OF CARE 170 MG/DL (70-110)
[2019-03-16 06:06] LABS: CALCIUM, TOTAL 8.4 mg/dL (8.8-10.5); CREATININE 1.31 mg/dL (0.60-1.30); POTASSIUM 3.8 mmol/L (3.5-5.1)
[2019-03-16 07:31] VITALS: BP 116/74
[2019-03-16] MEDS: SULFAMETHOX IV SCH ×2 (09:13→16:29)
[2019-03-16] MEDS: WATER IV SCH ×2 (09:13→16:29)
[2019-03-16] MEDS: TRIMETH IV SCH ×2 (09:13→16:29)
[2019-03-16] MEDS: DEXTROSE IV SCH ×2 (09:13→16:29)
[2019-03-16] MEDS: METHADONE HCL 10 MG TABLET PO SCH (09:14)
[2019-03-16] MEDS: DOCUSATE SODIUM 100 MG CAPSULE PO SCH ×2 (09:14→20:20)
[2019-03-16] MEDS: LISINOPRIL 10 MG TABLET PO SCH (09:14)
[2019-03-16] MEDS: FAMOTIDINE 20 MG TABLET PO SCH (09:14)
[2019-03-16 11:36] VITALS: BP 131/75
[2019-03-16] MEDS: INSULIN LISPRO 100 UNITS/ML SQ SCH ×2 (12:00→17:25)
[2019-03-16] MEDS ORDERED: VANCOMYCIN HCL 750 MG in DEXTROSE 5%-WATER 250 ML IV ONE (12:00)
[2019-03-16] MEDS: INSULIN LISPRO 100 UNITS/ML SQ PRN ×3 (12:03→21:21)
[2019-03-16 12:11] LABS: GLUCOMETER DEV NAME(LOC) 4E.2; GLUCOSE,POINT OF CARE 93 MG/DL (70-110)
[2019-03-16 14:03] LABS: GLUCOMETER DEV NAME(LOC) 6N.2; GLUCOSE,POINT OF CARE 194 MG/DL (70-110)
[2019-03-16 15:15] VITALS: BP 126/78
[2019-03-16 17:49] LABS: GLUCOMETER DEV NAME(LOC) 4E.2; GLUCOSE,POINT OF CARE 189 MG/DL (70-110)
[2019-03-16] MEDS: VANCOMYCIN HCL 750 MG in DEXTROSE 5%-WATER 250 ML IV SCH (19:13)
[2019-03-16 19:15] VITALS: BP 138/73
[2019-03-16] MEDS: INSULIN GLARGINE,HUM.REC.ANLOG 100 UNITS/ML SQ SCH (21:20)
[2019-03-16 22:25] LABS: GLUCOMETER DEV NAME(LOC) 6N.2; GLUCOSE,POINT OF CARE 160 MG/DL (70-110)
[2019-03-16 23:52] VITALS: BP 132/71
[2019-03-17] MEDS: TRIMETH IV SCH ×4 (00:30→23:53)
[2019-03-17] MEDS: WATER IV SCH ×4 (00:30→23:53)
[2019-03-17] MEDS: DEXTROSE IV SCH ×4 (00:30→23:53)
[2019-03-17] MEDS: SULFAMETHOX IV SCH ×4 (00:30→23:53)
[2019-03-17] MEDS ORDERED: SODIUM CHLORIDE 0.9% 500 ML IV ONE (04:21)
[2019-03-17 05:08] VITALS: BP 124/72
[2019-03-17 06:19] LABS: GLUCOMETER DEV NAME(LOC) 4E.2; GLUCOSE,POINT OF CARE 89 MG/DL (70-110)
[2019-03-17] MEDS: INSULIN LISPRO 100 UNITS/ML SQ SCH ×3 (06:30→17:21)
[2019-03-17 06:37] LABS: BASOPHILS % (AUTO) 0.7 % (0.0-2.0); HEMATOCRIT 31.5 % (41-53); HEMOGLOBIN 10.9 g/dL (13.5-17.5); LYMPHOCYTES % (AUTO) 23.1 % (22.0-44.0); MEAN CORPUSCULAR HEMOGLOBIN 27.8 pg (26.0-34.0); MEAN CORPUSCULAR HGB CONC 34.6 G/dL (31.0-37.0); MEAN CORPUSCULAR VOLUME 80 fL (80-100); MONOCYTES # (AUTO) 0.4 K/uL (0.1-1.0); MONOCYTES % (AUTO) 8.9 % (2.0-9.0); NEUTROPHILS # (AUTO) 2.6 K/uL (1.8-7.7); NEUTROPHILS % (AUTO) 61.3 % (40.0-70.0); PLATELET COUNT (AUTO) 62 K/uL (150-450); RED BLOOD CELL COUNT(AUTO) 3.92 MIL/uL (4.50-5.90); RED CELL DISTRIBUTION WIDTH 15.6 % (11.5-14.5)
[2019-03-17 06:46] LABS: CALCIUM, TOTAL 8.4 mg/dL (8.8-10.5); CREATININE 1.48 mg/dL (0.60-1.30); POTASSIUM 3.8 mmol/L (3.5-5.1)
[2019-03-17] MEDS: VANCOMYCIN HCL 750 MG in DEXTROSE 5%-WATER 250 ML IV SCH ×2 (06:55→19:19)
[2019-03-17 07:10] VITALS: BP 131/77
[2019-03-17] MEDS: ONDANSETRON HCL 4 MG/2 ML VIAL IVP PRN ×3 (08:53→23:53)
[2019-03-17] MEDS: LISINOPRIL 10 MG TABLET PO SCH (08:59)
[2019-03-17] MEDS: FAMOTIDINE 20 MG TABLET PO SCH (08:59)
[2019-03-17] MEDS: DOCUSATE SODIUM 100 MG CAPSULE PO SCH ×2 (09:00→20:13)
[2019-03-17] MEDS: METHADONE HCL 10 MG TABLET PO SCH (09:24)
[2019-03-17 11:05] VITALS: BP 127/77
[2019-03-17] MEDS: INSULIN LISPRO 100 UNITS/ML SQ PRN ×2 (11:49→20:11)
[2019-03-17 15:10] VITALS: BP 124/68
[2019-03-17 18:35] LABS: GLUCOMETER DEV NAME(LOC) 4E.2; GLUCOSE,POINT OF CARE 113 MG/DL (70-110)
[2019-03-17 18:35] LABS: GLUCOMETER DEV NAME(LOC) 4E.2; GLUCOSE,POINT OF CARE 248 MG/DL (70-110)
[2019-03-17 20:05] VITALS: BP 138/74
[2019-03-17] MEDS: INSULIN GLARGINE,HUM.REC.ANLOG 100 UNITS/ML SQ SCH (20:10)
[2019-03-17 20:32] LABS: GLUCOMETER DEV NAME(LOC) 4E.2; GLUCOSE,POINT OF CARE 220 MG/DL (70-110)
[2019-03-17 23:23] VITALS: BP 131/73
[2019-03-18 04:36] VITALS: BP 136/69
[2019-03-18] MEDS: INSULIN LISPRO 100 UNITS/ML SQ SCH ×3 (06:09→17:02)
[2019-03-18] MEDS: VANCOMYCIN HCL 750 MG in DEXTROSE 5%-WATER 250 ML IV SCH ×2 (06:13→18:58)
[2019-03-18 06:15] LABS: CALCIUM, TOTAL 8.7 mg/dL (8.8-10.5); CREATININE 1.4 mg/dL (0.60-1.30); POTASSIUM 4.6 mmol/L (3.5-5.1); VANCOMYCIN,RANDOM 16.8 mcg/mL (25.0-50.0)
[2019-03-18 06:36] LABS: GLUCOMETER DEV NAME(LOC) 6N.2; GLUCOSE,POINT OF CARE 89 MG/DL (70-110)
[2019-03-18 07:48] VITALS: BP 126/74
[2019-03-18] MEDS: DOCUSATE SODIUM 100 MG CAPSULE PO SCH ×2 (08:20→20:44)
[2019-03-18] MEDS: FAMOTIDINE 20 MG TABLET PO SCH (08:20)
[2019-03-18] MEDS: LISINOPRIL 10 MG TABLET PO SCH (08:20)
[2019-03-18] MEDS: METHADONE HCL 10 MG TABLET PO SCH (08:20)
[2019-03-18] MEDS: WATER IV SCH ×2 (08:49→16:17)
[2019-03-18] MEDS: DEXTROSE IV SCH ×2 (08:49→16:17)
[2019-03-18] MEDS: TRIMETH IV SCH ×2 (08:49→16:17)
[2019-03-18] MEDS: SULFAMETHOX IV SCH ×2 (08:49→16:17)
[2019-03-18 11:10] VITALS: BP 128/71
[2019-03-18 15:22] VITALS: BP 104/65
[2019-03-18] MEDS: ONDANSETRON HCL 4 MG/2 ML VIAL IVP PRN (16:17)
[2019-03-18] MEDS: INSULIN LISPRO 100 UNITS/ML SQ PRN ×2 (17:05→21:16)
[2019-03-18 17:42] LABS: GLUCOMETER DEV NAME(LOC) 4E.2; GLUCOSE,POINT OF CARE 198 MG/DL (70-110)
[2019-03-18 17:42] LABS: GLUCOMETER DEV NAME(LOC) 4E.2; GLUCOSE,POINT OF CARE 110 MG/DL (70-110)
[2019-03-18 19:42] VITALS: BP 140/71
[2019-03-18] MEDS: INSULIN GLARGINE,HUM.REC.ANLOG 100 UNITS/ML SQ SCH (21:15)
[2019-03-18 21:31] LABS: GLUCOMETER DEV NAME(LOC) 4E.2; GLUCOSE,POINT OF CARE 184 MG/DL (70-110)
[2019-03-19 00:11] VITALS: BP 112/69
[2019-03-19] MEDS: TRIMETH IV SCH ×3 (00:16→16:18)
[2019-03-19] MEDS: WATER IV SCH ×3 (00:16→16:18)
[2019-03-19] MEDS: SULFAMETHOX IV SCH ×3 (00:16→16:18)
[2019-03-19] MEDS: DEXTROSE IV SCH ×3 (00:16→16:18)
[2019-03-19] MEDS: ONDANSETRON HCL 4 MG/2 ML VIAL IVP PRN ×2 (00:16→16:18)
[2019-03-19] MEDS: INSULIN LISPRO 100 UNITS/ML SQ SCH ×3 (05:56→17:27)
[2019-03-19 06:10] LABS: GLUCOMETER DEV NAME(LOC) 4E.2; GLUCOSE,POINT OF CARE 108 MG/DL (70-110)
[2019-03-19 06:21] VITALS: BP 126/70
[2019-03-19] MEDS: VANCOMYCIN HCL 750 MG in DEXTROSE 5%-WATER 250 ML IV SCH ×2 (06:45→18:24)
[2019-03-19 08:11] VITALS: BP 130/70
[2019-03-19] MEDS: DOCUSATE SODIUM 100 MG CAPSULE PO SCH ×2 (08:13→20:05)
[2019-03-19] MEDS: LISINOPRIL 10 MG TABLET PO SCH (08:13)
[2019-03-19] MEDS: FAMOTIDINE 20 MG TABLET PO SCH (08:13)
[2019-03-19] MEDS: METHADONE HCL 10 MG TABLET PO SCH (08:13)
[2019-03-19 08:17] LABS: CALCIUM, TOTAL 8.3 mg/dL (8.8-10.5); CREATININE 1.47 mg/dL (0.60-1.30)
[2019-03-19] MEDS: INSULIN LISPRO 100 UNITS/ML SQ PRN ×3 (11:28→20:06)
[2019-03-19 11:51] LABS: GLUCOMETER DEV NAME(LOC) 6N.2; GLUCOSE,POINT OF CARE 184 MG/DL (70-110)
[2019-03-19 12:25] VITALS: BP 118/67
[2019-03-19 15:15] VITALS: BP 104/56
[2019-03-19] MEDS ORDERED: MAGNESIUM HYDROXIDE SUSPENSION 30 ML UDCUP PO PRN (17:45)
[2019-03-19 19:29] VITALS: BP 128/74
[2019-03-19] MEDS: INSULIN GLARGINE,HUM.REC.ANLOG 100 UNITS/ML SQ SCH (20:07)
[2019-03-19 20:31] LABS: GLUCOMETER DEV NAME(LOC) 6N.2; GLUCOSE,POINT OF CARE 255 MG/DL (70-110)
[2019-03-19 20:31] LABS: GLUCOMETER DEV NAME(LOC) 6N.2; GLUCOSE,POINT OF CARE 185 MG/DL (70-110)
== END 2019-03-19 20:35 | DRG 871 ==
LOC: EMS 15:03 → 4E 19:00
PROVIDERS: ADMIT Internal Medicine; ATTEND Internal Medicine
DX: A41.9 Sepsis, unspecified organism (principal); E43 Unspecified severe protein-calorie malnutrition; L03.311 Cellulitis of abdominal wall; E87.1 Hypo-osmolality and hyponatremia; D61.818 Other pancytopenia; E11.65 Type 2 diabetes mellitus with hyperglycemia; B95.2 Enterococcus as the cause of diseases classified elsewhere; B95.7 Other staphylococcus as the cause of diseases classified elsewhere; B96.89 Other specified bacterial agents as the cause of diseases classified elsewhere; E66.01 Morbid (severe) obesity due to excess calories; I50.9 Heart failure, unspecified; I11.0 Hypertensive heart disease with heart failure; G89.29 Other chronic pain; K74.60 Unspecified cirrhosis of liver; Z68.39 Body mass index [BMI] 39.0-39.9, adult
CPT/HCPCS: 74177; 76705; 76770; 83605; 84145; 86140; 87040; 87081; 87205; 93005; 93308; 93970; 96365; 97161; 97165; 97535; G0378; J0690; J0696; J0713; J1815; J2405; J3370; J3490; J7030; J7040; J7050; J7060

== ENCOUNTER 2020-06-02 18:39 | Emergency (ER) | payer OTHER ==
[~2020-06-02] VITALS: Ht 170.2 cm; Wt 95.5 kg
[~2020-06-02 18:39] MED LIST changes: -LISI-661 PO; +LISI-893 PO
[2020-06-02] MEDS ORDERED: INSNOV SQ (18:47)
[2020-06-02] MEDS ORDERED: INSLAN SQ (18:47)
[2020-06-02 18:53] LABS: GLUCOSE,POINT OF CARE 167 MG/DL (70-110)
[2020-06-02] MEDS ORDERED: ACETAMINOPHEN 500 MG TABLET PO ONE (22:30)
[2020-06-02] MEDS ORDERED: ValACYclovir HCL 500 MG TABLET PO ONE (22:30)
[2020-06-02 23:52] VITALS: BP 131/80
== END 2020-06-03 01:19 | disposition home or self-care (01) ==
LOC: EMS 18:42
DX: S09.90XA Unspecified injury of head, initial encounter (principal); S20.212A Contusion of left front wall of thorax, initial encounter; B02.9 Zoster without complications; I11.0 Hypertensive heart disease with heart failure; I50.9 Heart failure, unspecified; E11.9 Type 2 diabetes mellitus without complications; W19.XXXA Unspecified fall, initial encounter; Y93.89 Activity, other specified; Y92.89 Other specified places as the place of occurrence of the external cause; Y99.8 Other external cause status
CPT/HCPCS: 70450; 71101; 72125; 99285

== ENCOUNTER 2021-01-09 19:01 | Emergency (ER) | payer OTHER ==
[~2021-01-09] VITALS: Ht 175.3 cm; Wt 77.3 kg
[~2021-01-09 19:01] MED LIST changes: +INSLAN SQ; +INSNOV SQ; +[UNRECOGNIZED DRUG - OTHER] PO
[2021-01-09] MEDS ORDERED: DOXYCYCLINE HYCLATE 100 MG TABLET PO ONE (23:30)
[2021-01-09] MEDS ORDERED: PERTUSS(ACELL),DIPH,TET VAC/PF 0.5 ML SYRINGE IM. ONE (23:30)
[2021-01-10 00:54] VITALS: BP 135/85
== END 2021-01-10 01:42 | disposition home or self-care (01) ==
LOC: EMS 19:02
DX: L03.113 Cellulitis of right upper limb (principal); L03.114 Cellulitis of left upper limb; I11.0 Hypertensive heart disease with heart failure; I50.9 Heart failure, unspecified; E11.9 Type 2 diabetes mellitus without complications; G89.29 Other chronic pain; Z79.4 Long term (current) use of insulin
CPT/HCPCS: 90471; 90715; 99283; 99284

== ENCOUNTER 2021-01-18 17:30 | Emergency (ER) | payer OTHER ==
[~2021-01-18] VITALS: Ht 175.3 cm; Wt 109.1 kg
[2021-01-18] MEDS ORDERED: LIDOCAINE/PF 1% 2 ML VIAL IM ONE (20:15)
[2021-01-18] MEDS ORDERED: CefTRIAXone SODIUM 1 GM/VIAL IM ONE (20:15)
[2021-01-18] MEDS ORDERED: SULFAMETHOX/TRIMETH DS 800-160 MG/TABLET PO ONE (20:15)
[2021-01-18 20:30] VITALS: BP 145/79
== END 2021-01-18 20:38 | disposition home or self-care (01) ==
LOC: EMS 17:30
DX: L03.114 Cellulitis of left upper limb (principal); F15.10 Other stimulant abuse, uncomplicated; I11.0 Hypertensive heart disease with heart failure; I50.9 Heart failure, unspecified; E11.9 Type 2 diabetes mellitus without complications
CPT/HCPCS: 82962; 96372; 99283; J0696; J3490

== ENCOUNTER 2021-02-06 22:19 | Emergency (ER) | payer OTHER ==
[~2021-02-06] VITALS: Ht 172.7 cm; Wt 109.1 kg
[2021-02-07 01:30] VITALS: BP 108/68
== END 2021-02-07 01:30 | disposition home or self-care (01) ==
LOC: EMS 22:21
DX: S41.102A Unspecified open wound of left upper arm, initial encounter (principal); F14.90 Cocaine use, unspecified, uncomplicated; F11.90 Opioid use, unspecified, uncomplicated; I11.0 Hypertensive heart disease with heart failure; I50.9 Heart failure, unspecified; E11.9 Type 2 diabetes mellitus without complications; Z79.4 Long term (current) use of insulin; X58.XXXA Exposure to other specified factors, initial encounter; Y93.89 Activity, other specified; Y92.89 Other specified places as the place of occurrence of the external cause; Y99.8 Other external cause status
CPT/HCPCS: 99281; Z7502

== ENCOUNTER 2021-03-21 14:13 | Emergency (ER) | payer OTHER ==
[~2021-03-21] VITALS: Ht 175.3 cm; Wt 120.0 kg
[~2021-03-21 14:13] MED LIST changes: +METF-1211 PO; -METF-960 PO
[2021-03-21 17:10] LABS: BASOPHILS % (AUTO) 0.4 % (0.0-2.0); EOSINOPHILS % (AUTO) 3.3 % (1.0-6.0); HEMATOCRIT 34.2 % (41-53); HEMOGLOBIN 11.7 g/dL (13.5-17.5); LYMPHOCYTES # (AUTO) 0.8 K/uL (1.0-4.8); LYMPHOCYTES % (AUTO) 14.3 % (22.0-44.0); MEAN CORPUSCULAR HEMOGLOBIN 27.7 pg (26.0-34.0); MEAN CORPUSCULAR HGB CONC 34.1 G/dL (31.0-37.0); MEAN CORPUSCULAR VOLUME 81 fL (80-100); MONOCYTES # (AUTO) 0.4 K/uL (0.1-1.0); MONOCYTES % (AUTO) 7.4 % (2.0-9.0); NEUTROPHILS # (AUTO) 4.3 K/uL (1.8-7.7); NEUTROPHILS % (AUTO) 74.6 % (40.0-70.0)
[2021-03-21 17:18] LABS: COVID AG,FIA SOURCE NASOPHARYNGEAL
[2021-03-21 17:23] LABS: ANION GAP 5 mmol/L (8-16); CARBON DIOXIDE 28 mmol/L (22-29); CHLORIDE 102 mmol/L (98-107); CREATININE 1.58 mg/dL (0.60-1.30); GLOMERULAR FILTR. RATE CALC 46 mL/min (>60); GLUCOSE,RANDOM 137 mg/dL (70-110); POTASSIUM 4.5 mmol/L (3.5-5.1); SODIUM SERUM 135 mmol/L (136-145); UREA NITROGEN, BLOOD 23 mg/dL (7-18)
[2021-03-21 17:30] LABS: ALANINE AMINOTRANSFERASE 24 U/L (12-78); ALBUMIN 3.1 g/dL (3.4-5.0); ALKALINE PHOSPHATASE 114 U/L (46-116); ASPARTATE AMINOTRANSFERASE 35 U/L (15-37); BILIRUBIN,TOTAL 1.3 mg/dL (0.1-1.0); LIPASE 181 U/L (73-393)
[2021-03-21 17:31] LABS: AMMONIA 27 umol/L (11-32)
[2021-03-21 17:36] LABS: TROPONIN I < 0.02 ng/mL (0.00-0.05)
[2021-03-21 17:46] LABS: B-TYPE NATRIURETIC PEPTIDE 627 pg/mL (0-100)
[2021-03-21 18:02] LABS: PLATELET COUNT (AUTO) 51 K/uL (150-450)
[2021-03-21 19:55] VITALS: BP 179/97
== END 2021-03-21 19:55 | disposition home or self-care (01) ==
LOC: EMS 14:18
DX: K74.60 Unspecified cirrhosis of liver (principal); K59.00 Constipation, unspecified; R60.0 Localized edema; I11.0 Hypertensive heart disease with heart failure; I50.9 Heart failure, unspecified; E11.9 Type 2 diabetes mellitus without complications; G89.29 Other chronic pain; F14.90 Cocaine use, unspecified, uncomplicated; F19.90 Other psychoactive substance use, unspecified, uncomplicated; Z20.822 Contact with and (suspected) exposure to COVID-19; Z79.84 Long term (current) use of oral hypoglycemic drugs; Z79.899 Other long term (current) drug therapy; Z79.4 Long term (current) use of insulin
CPT/HCPCS: 36415; 71045; 80053; 82140; 82962; 83690; 83735; 83880; 84484; 85025; 87426; 93005; 99285; G0480